=== PATIENT | female | born 1970 | race Caucasian/White ===

== ENCOUNTER 2020-04-29 23:46 | Inpatient (IN) | payer OTHER, SELFPAY ==
[~2020-04-29] VITALS: Ht 157.5 cm; Wt 187.8 kg
[2020-04-29 23:50] VITALS: BP 129/61
[2020-04-30] VITALS (10 sets, daily range): BP systolic 108–128; BP diastolic 51–73
--- NOTE | 2020-04-30 00:06 | NUR ---
PT ANSELMO ALS. TAKEN TO BED 3
--- NOTE | 2020-04-30 00:18 | NUR ---
49 Y/O FEMALE BIBA FROM [facility] WITH LOW 02 SAT AND POSSIBLE LT SHOULDER FX. T PIECE ON 8L O2 SATURATION 97%. PT DENIES PAIN AT THIS TIME. VSS. MEDHX- CHF, HTN, VENTRAL HERNIA, CHRONIC RESP FAILURE, TRACH, DM NKA
--- NOTE | 2020-04-30 00:32 | NUR ---
Dr Borjas at bedside examining pt
--- NOTE | 2020-04-30 00:38 | NUR ---
Lab at bedside
[2020-04-30 00:54] LABS: BASOPHILS # (AUTO) 0.1 K/uL (0.00-0.22); BASOPHILS % (AUTO) 0.6 % (0.0-2.0); EOSINOPHILS # (AUTO) 0.4 K/uL (0-0.4); EOSINOPHILS % (AUTO) 4.2 % (0.0-4.0); HEMATOCRIT 36.1 % (36-48); LYMPHOCYTES # (AUTO) 1.7 K/uL (2.5-16.5); MEAN CORPUSCULAR HEMOGLOBIN 25 pg (27-31); MEAN CORPUSCULAR HGB CONC 31 g/dL (33-37); MEAN CORPUSCULAR VOLUME 81.7 fL (80-94); MONOCYTES # (AUTO) 0.6 K/uL (0.8-1.0); MONOCYTES % (AUTO) 5.8 % (1.7-9.3); NEUTROPHILS # (AUTO) 6.9 K/uL (1.8-7.7); NEUTROPHILS % (AUTO) 71.4 % (42.2-75.2); PLATELET COUNT (AUTO) 238 K/uL (140-450); RED BLOOD CELL COUNT(AUTO) 4.42 MIL/uL (4.20-5.40); RED CELL DISTRIBUTION WIDTH 19.6 % (11.6-13.7); WHITE BLOOD COUNT (AUTO) 9.6 K/uL (4.8-10.8)
[2020-04-30 01:11] LABS: PROTHROMBIN TIME 10.1 secs (10.8-13.4)
[2020-04-30 01:16] LABS: ALBUMIN 2.6 g/dL (3.4-5.0); CREATININE 0.6 mg/dL (0.6-1.3); TOTAL BILIRUBIN 0.4 mg/dL (0.0-1.0)
[2020-04-30 01:22] LABS: ANION GAP 6.9 (8-16); CARBON DIOXIDE 39.1 mmol/L (21-32)
--- NOTE | 2020-04-30 01:42 | NUR ---
X-Ray at bedside.
--- NOTE | 2020-04-30 02:35 | NUR ---
pt desaturating O2 76%. pt placed on 15L O2 to tpiece. pt suctioned. called rt.
--- NOTE | 2020-04-30 02:36 | NUR ---
Respiratory Therapist at bedside for respiratory intervention.
--- NOTE | 2020-04-30 02:40 | NUR ---
Pt placed on Trach to Vent. FiO2 70%, TV 500, Rate 18, Peep 5, O2 saturaiton 93%. will continue to monitor.
[2020-04-30] MEDS ORDERED: PIPERACILLIN/TAZOBACTAM 3.375 GM in DEXTROSE 5% 50 ML IV ONE (02:50)
[2020-04-30] MEDS ORDERED: NOVN SUBQ (02:51)
[2020-04-30] MEDS ORDERED: ONDA4TAB PO (02:51)
[2020-04-30] MEDS ORDERED: LISI2.5T12 PO (02:51)
[2020-04-30] MEDS ORDERED: LOV40I SUBQ (02:51)
[2020-04-30] MEDS ORDERED: MIRABULK PO (02:51)
[2020-04-30] MEDS ORDERED: FAMO-90 PO (02:51)
[2020-04-30] MEDS ORDERED: CHLO473L1 PO (02:51)
[2020-04-30] MEDS ORDERED: ATOR40TA PO (02:51)
[2020-04-30] MEDS ORDERED: DOCU-300 PO (02:51)
[2020-04-30] MEDS ORDERED: TRAM50TA1 PO (02:51)
[2020-04-30] MEDS ORDERED: LACT10SO86 PO (02:51)
[2020-04-30] MEDS ORDERED: ACET-8470 PO (02:51)
[2020-04-30] MEDS ORDERED: PIPERACILLIN/TAZOBACTAM 3.375 GM VIAL IV ONE ×3 (02:55→20:08)
[2020-04-30 03:22] LABS: APPEARANCE,URINE CLOUDY (CLEAR); BILIRUBIN,URINE NEGATIVE (NEGATIVE); BLOOD, URINE 3+ (NEGATIVE); COLOR,URINE YELLOW (YELLOW); LEUKOCYTE ESTERASE ,URINE 2+ (NEGATIVE); NITRITE, URINE NEGATIVE (NEGATIVE); PH,URINE 8.5 (5.0-9.0); UGLUCOSE NEGATIVE (NEGATIVE)
[2020-04-30] MEDS ORDERED: LEVOFLOXACIN 500 MG/D5W PREMIX 100 ML IV ONE (03:35)
--- NOTE | 2020-04-30 04:00 | NUR ---
URINE AND LYRIC SWAB COLLECTED AND SENT TO LAB
[2020-04-30 04:16] LABS: RBC,URINE 11-20 (MOD) /HPF (0-5)
--- NOTE | 2020-04-30 04:16 | NUR ---
called [phone] Sawyer Aquino. updated on pt status. Addendum: 04/30/20 at 0619 by [email or web address] PT'S HUBSAND REQUESTING UPDATE TO WHICH TREVIZO SHE WILL BE TRANSFERRED TO. WILL UPDATE WHEN STATUS KNOWN.
--- NOTE | 2020-04-30 04:25 | NUR ---
RT AT BEDSIDE OBTAINING ABG
--- NOTE | 2020-04-30 06:14 | NUR ---
PT TRACH TO VENT O2 SATURATION, 96%. VSS. WILL CONTINUE TO MONITOR.
--- NOTE | 2020-04-30 07:14 | NUR ---
REPORT GIVEN TO PARISH HOLT FOR CONTINUITY OF CARE
--- NOTE | 2020-04-30 07:15 | NUR ---
REPORT RECEIVED FROM YANET HORTA FOR CONTINUITY OF CARE
--- NOTE | 2020-04-30 10:05 | NUR ---
PT RESTING IN BED COMFORTABLY
[2020-04-30] MEDS ORDERED: guaiFENesin DM 200/20 MG-10 ML 10 ML UDC PO PRN (11:05)
[2020-04-30] MEDS ORDERED: ONDANSETRON 4 MG/2 ML VIAL IM/IVP PRN (11:05)
[2020-04-30] MEDS ORDERED: POTASSIUM CHLORIDE 10 MEQ TABER PO PRN (11:05)
[2020-04-30] MEDS ORDERED: ZOLPIDEM 5 MG TAB PO PRN (11:05)
[2020-04-30] MEDS ORDERED: ACETAMINOPHEN 325 MG TAB PO PRN (11:05)
[2020-04-30] MEDS ORDERED: DOCUSATE SODIUM 100 MG GELCAP PO PRN (11:05)
[2020-04-30] MEDS: NACL 0.9% 1,000 ML IV SCH ×2 (11:22→17:50)
[2020-04-30 12:40] LABS: CHOL/HDL RATIO 2.6 (1-4.5); FREE T4 (FREE THYROXINE) 0.98 ng/dL (0.76-1.46); MAGNESIUM 1.7 mg/dL (1.8-2.4); PHOSPHORUS 1.6 mg/dL (2.5-4.9); THYROID STIMULATING HORMONE 1.92 uIU/mL (0.34-3.74)
[2020-04-30] MEDS ORDERED: PIPERACILLIN/TAZOBACTAM 3.375 GM in DEXTROSE 5% 50 ML IV SCH (13:00)
--- NOTE | 2020-04-30 14:33 | NUR ---
REPORT GIVEN TO YANET WATERS. CONTACTED RT 3X TO ASSIST TRANSFER OF PT WITH [facility].
--- NOTE | 2020-04-30 15:10 | NUR ---
Patient will be admitted to care of DR ONEAL. Admited to TELE. Will go to room 106 A. Belongings list completed. Report to YANET WATERS.
--- NOTE | 2020-04-30 15:10 | NUR ---
RECEIVED THIS 49 YEAR OLD FEMALE PER LISA FROM ER, ADMITTED A CASE OF RESPIRATORY FAILURE, UTI, PNEUMONIA UNDER THE CARE OF DR. ONEAL. AWAKE, ALERT, APHASIC CAN COMPREHEND BY CLOSING HER EYES. TRACH TO VENT WITH SETTING TV-500, FIO2-45%, RATE-18, PEEP-5CM H2O,SATURATING AT 94%,NON LABORED NOTED. WITH ONGOING IV FLUID WITH 0.9% NS AT 150ML/HOUR INFUSING AT LEFT FOREARM G20 IV CANNULA NOTED. SAFETY MEASURES IN PLACE AND CONTINUE MONITOR.
--- NOTE | 2020-04-30 16:01 | NUR ---
MRSA NARES SWAB DONE, AFTERNOON CARE DONE, SKIN IS INTACT ON THE BACK NOTED, PASSED LARGE AMOUNT OF PASTY YELLOWISH STOOL, LEON-ANAL CARE DONE. KEPT COMFORTABLE AND HEAD OD BED AT 30 DEGREE.
--- NOTE | 2020-04-30 17:09 | NUR ---
APPARENTLY NO TUBE FEEDING ORDER, DR. ONEAL CONTACTED THRU TEXT MESSAGE IF CAN START TUBE FEEDING AND TOMORROW CAN REFERRED TO [facility]. ORDERED TO START GLUCERNA 1.2 55ML/HOUR + WATER 100ML/4HOUR VIA NGT.
--- NOTE | 2020-04-30 17:41 | NUR ---
CT DEPARTMENT CALLED, PATIENT FOR RT SHOULDER CT SCAN, SAID TO CALL BACK IF SOMEBODY CAN HELP FOR TRANSFER TO CT TABLE.
--- NOTE | 2020-04-30 18:04 | NUR ---
ORAL AND TRACH SUCTIONING, WHITISH SECRETION IN SMALL AMOUNT NOTED, NOT IN DISTRESS, O2SAT AT -94%
--- NOTE | 2020-04-30 19:30 | NUR ---
ENDORSED TO PLASTER PATTERNMAKER IN STABLE CONDITION FOR CONTINUITY OF CARE AND DISCUSSED PLAN OF CARE
--- NOTE | 2020-04-30 19:35 | NUR ---
RECEIVED PATIENT FROM AM SHIFT NURSE FOR CONTINUITY OF CARE. AAOX2-3, ABLE TO MAKE NEEDS KNOWN. TRACH TO VENT. VENT SETTINGS: ACVC FIO2 45% VT 500 RR 18 PEEP 5. RESPIRATIONS EVEN, UNLABORED. O2SAT 100%. SUCTIONED THIN WHITE SECRETIONS. SKIN WARM, DRY TO TOUCH. IV SIT TO LEFT FOREARM 20G PATENT/INTACT, INFUSING FLUIDS WELL. NGT TO RIGHT NARE IN PLACE. CONTINUES ON ENTERAL FEEDING, TOLERATING WELL. NO RESIDUAL NOTED. ABDOMEN SOFT AND LARGE. NONTENDER. HERNIA NOTED TO RIGHT UPPER QUADRANT. INCONTINENT OF B/B. PLAN OF CARE DISCUSSED. SAFETY PRECAUTIONS IN PLACE. CALL LIGHT WITHIN REACH.
[2020-04-30] MEDS: PIPERACILLIN/TAZOBACTAM 3.375 GM in DEXTROSE 5% 50 ML IV SCH (20:11)
--- NOTE | 2020-04-30 21:30 | NUR ---
DUE MEDS GIVEN. SUCTIONED NEEDED. PATIENT HAS NO C/O PAIN. CALL LIGHT WITHIN REACH.
--- NOTE | 2020-04-30 23:00 | NUR ---
RT AT BEDSIDE. PATIENT CONTINUES IN STABLE CONDITION. NO C/O PAIN. NO S/S ACUTE DISTRESS. CALL LIGHT WITHIN REACH.
[2020-05-01] VITALS (13 sets, daily range): BP systolic 107–145; BP diastolic 56–74
[2020-05-01] MEDS: NACL 0.9% 1,000 ML IV SCH ×3 (00:25→15:00)
--- NOTE | 2020-05-01 01:39 | NUR ---
TURNED AND REPOSITIONED FOR COMFORT. PATIENT IS AWAKE AND CONTINUES IN STABLE CONDITION. NO C/O PAIN. CALL LIGHT WITHIN REACH.
--- NOTE | 2020-05-01 03:06 | NUR ---
PATIENT IS ASLEEP. NO S/S ACUTE DISTRESS. CALL LIGHT WITHIN REACH.
[2020-05-01] MEDS: HYDROcodone/APAP 7.5/325 MG 1 TAB PO PRN ×2 (03:29→17:11)
[2020-05-01] MEDS ORDERED: PIPERACILLIN/TAZOBACTAM 3.375 GM VIAL IV ONE (04:11)
[2020-05-01] MEDS: PIPERACILLIN/TAZOBACTAM 3.375 GM in DEXTROSE 5% 50 ML IV SCH ×3 (04:16→20:06)
--- NOTE | 2020-05-01 05:26 | NUR ---
PATIENT ASLEEP. NO S/S ACUTE DISTRESS. CALL LIGHT WITHIN REACH.
[2020-05-01 06:59] LABS: BASOPHILS % (AUTO) 0.4 % (0.0-2.0); EOSINOPHILS # (AUTO) 0.2 K/uL (0-0.4); EOSINOPHILS % (AUTO) 2.2 % (0.0-4.0); HEMATOCRIT 31.6 % (36-48); HEMOGLOBIN 9.9 g/dL (12.0-16.0); LYMPHOCYTES % (AUTO) 22.8 % (20.5-51.1); MEAN CORPUSCULAR HEMOGLOBIN 25 pg (27-31); MEAN CORPUSCULAR HGB CONC 31 g/dL (33-37); MEAN CORPUSCULAR VOLUME 79.9 fL (80-94); MONOCYTES # (AUTO) 0.5 K/uL (0.8-1.0); MONOCYTES % (AUTO) 6.1 % (1.7-9.3); NEUTROPHILS # (AUTO) 5.9 K/uL (1.8-7.7); NEUTROPHILS % (AUTO) 68.5 % (42.2-75.2); PLATELET COUNT (AUTO) 193 K/uL (140-450); RED BLOOD CELL COUNT(AUTO) 3.95 MIL/uL (4.20-5.40); RED CELL DISTRIBUTION WIDTH 19.4 % (11.6-13.7); WHITE BLOOD COUNT (AUTO) 8.6 K/uL (4.8-10.8)
--- NOTE | 2020-05-01 07:03 | NUR ---
ENDORSED PATIENT TO AM SHIFT NURSE FOR CONTINUITY OF CARE.
[2020-05-01 07:19] LABS: ANION GAP 10.4 (8-16); CREATININE 0.7 mg/dL (0.6-1.3); POTASSIUM 3.4 mmol/L (3.5-5.1)
--- NOTE | 2020-05-01 07:20 | NUR ---
RECEIVED REPORT FROM PIPE STEM REPAIRER NURSE. PT IN BED, ALERT, ABLE TO MAKE NEEDS KNOWN. TRACH TO VENT ACVC FIO2 45%, RR 18, PEEP 5. HOB 30 DEGREES, BREATHING EVEN AND UNLABORED. R NARE NG TUBE TO FEEDING, GLUCERNA 1.2 @ 55 ML/HR. L FA 20 G L FA 20 G, CLEAN AND INTACT, INFUSING NS @ 150 ML/HR. BED IN LOW POSITION. SAFETY DEPOSIT BOXES CUSTODIAN IN PLACE. SAFETY MEASURES IN PLACE.
[2020-05-01 08:07] LABS: T4 (THYROXINE) 5.5 ug/dL (4.5-12.0)
[2020-05-01] MEDS: PANTOPRAZOLE 40 MG TABEC PO SCH (09:52)
--- NOTE | 2020-05-01 09:52 | NUR ---
ADMINISTERED SCHEDULED AM MEDS PER MD ORDER. NEW BAG OF NS STARTED. MED EDUCATION PROVIDED, PT VERBALIZES UNDERSTANDING. NG TUBE RESIDUAL LESS THAN 5 ML, FLUSHED BEFORE AND AFTER MEDS. ORAL CARE PROVIDED, PT TOLERATED ORAL CARE WELL. NO SIGNS OF ACUTE DISTRESS NOTED. HOB 30 DEGREES, BREATHING EVEN AND UNLABORED. BED IN LOW POSITION, GAS ROLLER OPERATOR IN PLACE, SAFETY MEASURES IN PLACE.
--- NOTE | 2020-05-01 13:36 | NUR ---
NEW BAG OF ABX STARTED PER MD ORDER. MED EDUCATION PROVIDED, PT VERBALIZES UNDERSTANDING. CONSTRUCTION DRILLER IN PLACE. SAFETY MEASURES IN PLACE. NO SIGNS OF ACUTE DISTRESS NOTED.
--- NOTE | 2020-05-01 15:20 | NUR ---
PATIENT AWAKE AND WATCHING TV ON BED AT THIS TIME. DENIED PAIN, SOB AND ANY DISTRESS NOTED. TELE MONITOR IN PLACE. SAFETY MEASURES IN PLACE. INSTRUCTED PATIENT TO USE THE CALL LIGHT FOR ANY ASSISTANCE AND PATIENT IS AWARE.
--- NOTE | 2020-05-01 17:15 | NUR ---
PT COMPLAINS OF L SHOULDER PAIN. PRN MED ADMINISTERED PER MD ORDER. MED EDUCATION PROVIDED, PT VERBALIZES UNDERSTANDING. NG TUBE 5ML RESIDUAL, FLUSHED BEFORE AND AFTER MEDS. PT REPOSITIONED AND OFFLOADED PRESSURE WITH PILLOWS. HYGIENE PROVIDED WITH AID OF FIRMWARE SOFTWARE VERIFICATION ENGINEER, CHANGED ALL DIRTY LINEN. HOB 30 DEGREES, BREATHING EVEN AND UNLABORED NO SIGNS OF ACUTE DISTRESS NOTED. SWIMMING POOL SERVICER IN PLACE. SAFETY MEASURES IN PLACE.
--- NOTE | 2020-05-01 18:59 | NUR ---
STARTED NEW BOTTLE TUBE FEEDING GLUCERNA 1.2, RATE AT 55 ML/HR AND H20 FLUSH AT 100 ML/Q4H. CHANGED ALL TUBINGS. PATIENT IS RESTING ON BED. NO SIGNS OF ACUTE DISTRESS NOTED. TELE MONITOR IN PLACE. SAFETY MEASURES IN PLACE. HOB ELEVATED 35 DEGREE, BED IN LOW POSITION AND CALL LIGHT WITHIN REACH.
--- NOTE | 2020-05-01 19:23 | NUR ---
ENDORSED PT TO DATA STEWARD NURSE FOR CONTINUITY OF CARE. PT IN STABLE CONDITION.
--- NOTE | 2020-05-01 19:25 | NUR ---
RECEIVED REPORT FROM DAY SHIFT RN. PT IN BED, ALERT, ABLE TO MAKE NEEDS KNOWN. TRACH TO VENT ACVC FIO2 45%, RR 18, PEEP 5. HOB 30 DEGREES, BREATHING EVEN AND UNLABORED. R NARE NG TUBE TO FEEDING, GLUCERNA 1.2 @ 55 ML/HR. L FA 20 G CLEAN AND INTACT, INFUSING NS @ 150 ML/HR. BED IN LOW POSITION. RATE QUOTING OPERATOR IN PLACE. SAFETY MEASURES IN PLACE. WILL CONTINUE TO MONITOR
--- NOTE | 2020-05-01 19:45 | NUR ---
RECEIVED PT FROM DAY SHIFT ON SETTING AC18, VT500, PEEP 5, FIO2 40%. PT TRACH WITH SHILEY 6. VENTILATOR PLUGGED TO THE RED OUTLET, BVM @ BEDSIDE, ALARMS SET AUDIBLE . PT IS IN NO RESPIRATORY DISTRESS. WILL CONTINUE TO MONITOR.
--- NOTE | 2020-05-01 21:30 | NUR ---
ADMINISTERED 2100H MEDICATION PER ORDERED, PT RESTING AND SHOWING NO SIGNS OF ACUTE DISTRESS, SAFETY MEASURES IN PLACE, WILL CONTINUE TO MONITOR
[2020-05-02] VITALS (8 sets, daily range): BP systolic 96–121; BP diastolic 50–63
--- NOTE | 2020-05-02 00:10 | NUR ---
PT RESTING, SHOWING NO SIGNS OF ACUTE DISTRESS, SAFETY MEASURES IN PLACE
--- NOTE | 2020-05-02 01:51 | NUR ---
REPOSITIONED AND CHANGED THE PTS CHUCKS, ORAL CARE AND SUCTIONING PERFORMED, PT SHOWING NO SIGNS OF ACUTE DISTRESS, SAFETYH MEASURES IN PLACE
[2020-05-02] MEDS: NACL 0.9% 1,000 ML IV SCH ×4 (02:53→16:25)
--- NOTE | 2020-05-02 03:04 | NUR ---
HUNG NEW BAG OF NS RUNNING 150MLS/HR, PT RESTING AND SHOWING NO SIGNS OF ACUTE DISTRESS, SAFETY MEASURES IN PLACE, WILL CONTINUE TO MONITOR
[2020-05-02] MEDS: PIPERACILLIN/TAZOBACTAM 3.375 GM in DEXTROSE 5% 50 ML IV SCH ×3 (04:00→20:10)
--- NOTE | 2020-05-02 04:01 | NUR ---
RASHEEDA NEW BAG OF ZOSYN 3.375 GM
[2020-05-02 06:25] LABS: BASOPHILS % (AUTO) 0.5 % (0.0-2.0); EOSINOPHILS # (AUTO) 0.4 K/uL (0-0.4); EOSINOPHILS % (AUTO) 5.5 % (0.0-4.0); HEMATOCRIT 31.6 % (36-48); LYMPHOCYTES # (AUTO) 1.8 K/uL (2.5-16.5); LYMPHOCYTES % (AUTO) 24.2 % (20.5-51.1); MEAN CORPUSCULAR HEMOGLOBIN 25 pg (27-31); MEAN CORPUSCULAR HGB CONC 32 g/dL (33-37); MEAN CORPUSCULAR VOLUME 79.5 fL (80-94); MONOCYTES # (AUTO) 0.4 K/uL (0.8-1.0); MONOCYTES % (AUTO) 5.9 % (1.7-9.3); NEUTROPHILS # (AUTO) 4.9 K/uL (1.8-7.7); NEUTROPHILS % (AUTO) 63.9 % (42.2-75.2); PLATELET COUNT (AUTO) 175 K/uL (140-450); RED BLOOD CELL COUNT(AUTO) 3.98 MIL/uL (4.20-5.40); RED CELL DISTRIBUTION WIDTH 19.8 % (11.6-13.7); WHITE BLOOD COUNT (AUTO) 7.6 K/uL (4.8-10.8)
--- NOTE | 2020-05-02 06:29 | NUR ---
REPOSITIONED THE PT, ORAL CARE AND SUCTIONING PERFORMED, CHANGED THE LINEN AND GAVE MORNING CARE, PT SHOWING NO SIGNS OF ACUTE DISTRESS, SAFETY MEASURES IN PLACE, WILL CONTINUE TO MONITOR
--- NOTE | 2020-05-02 07:19 | NUR ---
ENDORSED TO DAY SHIFT RN FOR CONTINIUTY OF CARE, PT IN STABLE CONDITION
--- NOTE | 2020-05-02 07:20 | NUR ---
RECEIVED PT FROM GRAIN OPERATIONS MANAGER NURSE, PT IS TRACH TO VENT, ACPC, FIO2 40%, VT 500, R 16, PEEP 5, IV NOTED OT LFA 20G NS@150 ML/HR, INCONTINENT, NG TUBE RO R. NARE W/GLUCERNA 1.2N @ 55ML/HR, PT IS RESTING IN BED, SAFETY AND FALL PRECAUTIONS IN PLACE, WILL CONTINUE TO MONITOR.
[2020-05-02 07:24] LABS: ANION GAP 12.1 (8-16); CARBON DIOXIDE 28.2 mmol/L (21-32); CREATININE 0.6 mg/dL (0.6-1.3); POTASSIUM 3.3 mmol/L (3.5-5.1)
[2020-05-02] MEDS: HYDROcodone/APAP 7.5/325 MG 1 TAB PO PRN (09:10)
[2020-05-02] MEDS: PANTOPRAZOLE 40 MG TABEC PO SCH (09:10)
--- NOTE | 2020-05-02 09:10 | NUR ---
PT WAS GIVEN THE SCHEDULED AM MEDICATIONS, NG TUBE PLACEMENT CHECKED, WILL MONITOR PT.
--- NOTE | 2020-05-02 09:26 | NUR ---
DC PLANNIN YRS OLD FEMALE PATIENT WAS ADMITTED FROM [facility] WITH A DX OF RESP FAILURE ,PNE AND UTI. PT HAS A HX OF TRACH TO VENT, DYSPHAGIA CHF, DM HTN. CXR SHOWED CARDIOMEGALY WITH SUSPECTED PULMONARY VASCULAR CONGESTION. X-RAY LEFT SHOULDER APPEARED TO BE INFERIOR SUBLUXATION OF THE PROXIMAL HUMERAL HEAD RELATIVE TO THE GLENOID. SEEN BY ORTHO DR PICKETT SUGGESTED ORIF VX ARTHROPLASTY . RAPID COVID TEST NEGATIVE PCR IS PENDING. SEEN BY PULMO DR ALCOCER RECOMMENDED STRICT ASPIRATION PRECAUTION , CONTINUE VENT SUPPORT AND WEAN TOLERATED. DC PLAN TO GO BACK TO [facility] WHEN STABLE. CALLED ORD TO NOTIFY UPDATES ON PT'S STATUS STILL ON HOLD. CM TO FOLLOW Addendum: 05/02/20 at 1001 by Dalia Morris RN DC PLANNING: SPOKE WITH CHARO AT ORD NOTIFIED THAT PT IS STABLE FOR TRANSFER, UPDATED ALL CLINICALS AND PROVIDE DR ONEAL'S PHONE NUMBER FOR MD TO MD. PER CHARO SAVAGE THE CM WILL F/U. FAXED ALL THE CLINICAL. CM TO FOLLOW Addendum: 05/02/20 at 1206 by Dalia Morris RN DC PLANNING: RECEIVED A CALL FROM ORD SPOKE WITH ALEXSANDRA ESPINAL STATED ALL ORD FACILITIES ARE FULL BUT THEY ARE CONTRACTED WITH [facility] AND [facility]. CALLED PT'S SPOKE WITH TAIWO MORA PROVIDE HIM THE LIST AND AFTER HE TALK TO FAMILY MEMBER WILL CALL BACK. ALEXSANDRA TO FOLLOW Addendum: 05/02/20 at 1217 by Dalia Morris RN DC PLANNING PT'S CALLED BACK PREFERRED [facility] AND [facility] , CALLED ORD AND NOTIFIED TEDDY UPTON TO FOLLOW
[2020-05-02] MEDS ORDERED: POTASSIUM CHLORIDE 40 MEQ, LIDOCAINE MPF 1% 25 MG in NACL 0.9% 250 ML IV SCH (09:30)
--- NOTE | 2020-05-02 09:39 | NUR ---
PT WAS GIVEN 40MEQ K RIDER FOR K LEVEL OF 3.3, WILL MONITOR PT.
--- NOTE | 2020-05-02 11:00 | NUR ---
RECEIVED CALL FROM ELISHA TREVIZO, , ATTEMPTED TO RETURN CALL REGARDING PT TRANSFER, UNABLE TO CONTACT DUE TO MY RETURN CALL BEING PLACED ON HOLD FOR EXTENDED PERIOD OF TIME.
--- NOTE | 2020-05-02 11:13 | NUR ---
05/02/20 RD INITIAL ASSESSMENT COMPLETED PLEASE REFER TO NUTRITION ASSESSMENT UNDER CARE ACTIVITY FOR ESTIMATED NUTRITIONAL NEEDS. 1. RECOMMEND GLUCERNA 1.2 AT GOAL RATE OF 50 ML/HR, START AT 10 ML/HR AND INCRASE 10 ML Q4H. AT GOAL RATE THIS WILL PROVIDE 1440 KCAL AND 72 G PROTEIN, 100% OF PT ESTIMATED KCAL NEEDS AND 50% OF ESTIMATED PROTEIN NEEDS. 2. RECOMMEND PROSOURCE TID, THIS WILL PROVIDE AN ADDITIONAL 45 G OF PROTEIN. 3. FREE WATER FLUSH PER MD ORDERS PT HX CHF. 4. RD TO FOLLOW-UP 2-3 DAYS, HIGH RISK ALEJANDRINA HUGGINS, VERO
[2020-05-02] MEDS ORDERED: IV Zosyn IV (11:31)
--- NOTE | 2020-05-02 13:42 | NUR ---
SCHEDULED MEDICATION ADMINISTERED, PT IS AWAKE IN BED, PT EDUCATION PROVIDED, PT MOUTHED UNDERSTANDING , WILL CONTINUE TO MONITOR.
--- NOTE | 2020-05-02 17:20 | NUR ---
RECEIVED CALL FROM MINA ([phone] [facility] FOR TRANSFER TO [facility] TO DR STARR IN [facility] ROOM 2304, REPORT # [id number]. RESPIRATORY SCIENTIST TIME IS 2030 BY NURSE ON [facility] LISA. MINA WILL CALL 30 MINUTES BEFORE VITALS FOR SAFE TRANSFER.
--- NOTE | 2020-05-02 17:32 | NUR ---
INFORMED DR. ONEAL THAT THE PT WILL BE TRANSFERRED TO [facility] PER MINA, UNDER THE SERVICE OF DR. STARR AND WILL BE PLACE IN ROOM 2304, MD MADE A TELEPHONE ORDER TO PLACE A DISCHARGE ORDER FOR THE PT AND THAT MEDICATIONS HAD BEEN FINALIZED ALREADY
--- NOTE | 2020-05-02 20:45 | NUR ---
AMBULANCE COMPANY HERE, GAVE REPORT TO RN, TRANSFERRED CARE. CALLED TAIWO () AND UPDATED ON PATIENT TRANSFER.
== END 2020-05-02 21:00 | DRG 208 ==
LOC: MED 23:46 → MTU 04-30 00:06
PROVIDERS: ADMIT Family Medicine; ATTEND Family Medicine
PROC: 5A1945Z Respiratory Ventilation, 24-96 Consecutive Hours (ICD-10-PCS; principal; 2020-04-30)
DX: J69.0 Pneumonitis due to inhalation of food and vomit (principal); J96.20 Acute and chronic respiratory failure, unspecified whether with hypoxia or hypercapnia; E43 Unspecified severe protein-calorie malnutrition; N39.0 Urinary tract infection, site not specified; R47.01 Aphasia; Z68.45 Body mass index [BMI] 70 or greater, adult; D63.8 Anemia in other chronic diseases classified elsewhere; E11.9 Type 2 diabetes mellitus without complications; E66.01 Morbid (severe) obesity due to excess calories; E78.5 Hyperlipidemia, unspecified; I11.0 Hypertensive heart disease with heart failure; I50.9 Heart failure, unspecified; R13.10 Dysphagia, unspecified; S43.005A Unspecified dislocation of left shoulder joint, initial encounter; Z20.828 Contact with and (suspected) exposure to other viral communicable diseases; Z93.0 Tracheostomy status; X58.XXXA Exposure to other specified factors, initial encounter; Y93.89 Activity, other specified; Y92.89 Other specified places as the place of occurrence of the external cause; Y99.8 Other external cause status
CPT/HCPCS: 36415; 36600; 71045; 73030; 80048; 80053; 81001; 82150; 82803; 83036; 83605; 83690; 83735; 83880; 84100; 84436; 84439; 84443; 84479; 84484; 85025; 85610; 85730; 87040; 87081; 87086; 93005; 94003; 96365; 96366; 96367; 99291; J1956; J2001; J2543; J3480; J7030; J7060